=== PATIENT | female | born 1985 | race Caucasian/White ===

== ENCOUNTER 2019-08-28 16:48 | Emergency (ER) | payer OTHER ==
[~2019-08-28] VITALS: Ht 170.2 cm; Wt 133.2 kg
[2019-08-28 17:21] VITALS: BP 154/81
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
[2019-08-28] MEDS ORDERED: METHOCARBAMOL 750 MG TABLET PO ONE (18:30)
[2019-08-28] MEDS ORDERED: METHOCARBAMOL 750 MG TABLET ONE (18:43)
== END 2019-08-28 19:23 | disposition home or self-care (01) ==
LOC: ED 19:17
DX: G89.11 Acute pain due to trauma (principal); M50.30 Other cervical disc degeneration, unspecified cervical region; F17.200 Nicotine dependence, unspecified, uncomplicated; V49.49XA Driver injured in collision with other motor vehicles in traffic accident, initial encounter; Y93.89 Activity, other specified; Y92.89 Other specified places as the place of occurrence of the external cause; Y99.8 Other external cause status
CPT/HCPCS: 72050; 99283